=== PATIENT | female | born 1985 | race American Indian/Alaskan Native ===

== ENCOUNTER 2016-11-22 08:39 | Inpatient (IN) | payer MEDICAID ==
[~2016-11-22 08:39] MED LIST: Lactated Ringers 1,000 ML IV ONE
[2016-11-22] MEDS ORDERED: Oxytocin/Normal Saline 30 UNIT/500 ML BAG IV SCH (08:50)
[2016-11-22] MEDS ORDERED: fentaNYL 100 MCG/2 ML SDV ONE (08:58)
--- NOTE | 2016-11-22 09:02 | EDM.PDOC ---
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 Dr. Santa and Dr. Hudson paged upon report. Pt arrived with c/o strong contractions and need to push. Had Hx of prior . Pt unable to provide any further Hx at the time. 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 Below) Other OB/BYN History: hx preeclampsia with thrombocytopenia Psychiatric History: Reports: Other (See Below) Other Psychiatric History: hx opiate use - Past Surgical History Female Surgical History: Reports: Section Social & Family History - Family History Family Medical History: Noncontributory - Tobacco Use Smoking Status *Q: Current Every Day Smoker Years of Tobacco use: 10 Packs/Tins Daily: 0.1 - Recreational Drug Use Recreational Drug Use: No - Living Situation & Occupation Living situation: Reports: with Family ED ROS GENERAL - Review of Systems Review Of Systems: Unable To Obtain ED EXAM - Physical Exam Exam: See Below Exam Limited By: Other (Imminent breech delivery) General Appearance: Alert, No Apparent Distress Head: Atraumatic, Normocephalic Respiratory/Chest: No Respiratory Distress Cardiovascular: Regular Rate, Rhythm GI/Abdominal Exam: Other (gravid abd.) (Female) Exam: Other (single leg to mid-thigh presentation, other foot/leg not palpable on exam, mod. vag. bleeding and fluid leak) Neurological: Alert, Oriented Psychiatric: Anxious Course - Orders/Labs/Meds Orders: Medication Orders Acetaminophen (Tylenol) 650 mg PO Q6H PRN PRN Reason: mild pain or fever Benzocaine/Menthol (Dermoplast Pain Relief [place]) 0 gm TOP Q4H PRN PRN Reason: Perineal comfort measures Carboprost Tromethamine (Hemabate Ds) 250 mcg IM ASDIRECTED PRN PRN Reason: Excessive vaginal bleeding Docusate Sodium (Colace) 100 mg PO BID PRN PRN Reason: Constipation Ibuprofen (Motrin) 800 mg PO Q8H PRN PRN Reason: Mild Pain or Fever Misoprostol (Cytotec) 800 mcg RECTAL ONETIME PRN PRN Reason: Hemorrhage Prenat Multivit/[place]/Iron/Folic Ac ( Plus Iron) 1 each PO DAILY [facility] Simethicone (Simethicone) 80 mg PO Q4H PRN PRN Reason: Gas Sodium Chloride (Saline Flush) 10 ml FLUSH ASDIRECTED PRN PRN Reason: Keep Vein Open Meds: Medications Generic Name Dose Route Start Last Admin Trade Name Freq PRN Reason Stop Dose Admin Acetaminophen 650 mg 11/22/16 09:19 Tylenol PO Q6H PRN mild pain or fever Benzocaine/Menthol 0 gm 11/22/16 09:19 Dermoplast Pain Relief [place] TOP Q4H PRN Perineal comfort measures Carboprost Tromethamine 250 mcg 11/22/16 09:19 Hemabate Ds IM ASDIRECTED PRN Excessive vaginal bleeding Docusate Sodium 100 mg 11/22/16 09:19 Colace PO BID PRN Constipation Ibuprofen 800 mg 11/22/16 09:19 Motrin PO Q8H PRN Mild Pain or Fever Misoprostol 800 mcg 11/22/16 09:19 Cytotec RECTAL ONETIME PRN Hemorrhage Prenat Multivit/[place]/Iron/Folic Ac 1 each 11/23/16 09:00 Plus Iron PO DAILY [facility] Simethicone 80 mg 11/22/16 09:19 Simethicone PO Q4H PRN Gas Sodium Chloride 10 ml 11/22/16 09:19 Saline Flush FLUSH ASDIRECTED PRN Keep Vein Open Discontinued Medications Generic Name Dose Route Start Last Admin Trade Name Freq PRN Reason Stop Dose Admin Fentanyl Confirm 11/22/16 08:58 Sublimaze Administered 11/22/16 08:59 Dose 100 mcg .ROUTE .ST-MED ONE - Re-Assessments/Exams Free Text/Narrative Re-Assessment/Exam: 11/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 Santa present by 08:45, breech delivery of single live female at 08:47HRS. Infant required nasal and oral bulb suction, no mec. present in secretions. moved to warmer and bag/mask resp. support. pinked up and had good oxygen sats, spont. resp. effort, and HR in 140's (see RN notes for initial vitals and Dr. Santa's note for APGARS). Care of pt and infant assumed by Drs. Santa and Tristan following delivery and resuscitation. Departure - Departure Time of Disposition: 09:00 (admitted to Dr. Santa) Disposition: Admitted As Inpatient 66 Condition: Good Clinical Impression: Precipitous delivery Breech delivery Qualifiers: Fetus number: single or unspecified fetus Qualified Code(s): O32.1XX0 - Maternal care for breech presentation, not applicable or unspecified - Discharge Information
[2016-11-22] MEDS ORDERED: Misoprostol 400 MCG (4 X 100 MCG TAB) RECTAL PRN (09:19)
[2016-11-22] MEDS ORDERED: Benzocaine/Menthol 20%-0.5% Spray 56 GM Canister TOP PRN (09:19)
[2016-11-22] MEDS ORDERED: Simethicone 80 MG Tab.Chew PO PRN (09:19)
[2016-11-22] MEDS ORDERED: Sodium Chloride 0.9% 10 ML Syringe FLUSH PRN (09:19)
[2016-11-22] MEDS ORDERED: Acetaminophen 325 MG Tab PO PRN (09:19)
[2016-11-22] MEDS ORDERED: Carboprost Tromethamine 250 MCG/1 ML Amp IM PRN (09:19)
[2016-11-22 10:29] LABS: CHLORIDE,CL 106 mmol/L (101-111); SODIUM,NA 137 mmol/L (135-145)
[2016-11-22] MEDS ORDERED: Lactated Ringers 1,000 ML IV SCH (10:30)
[2016-11-22] MEDS ORDERED: Magnesium Sulfate/Water 100 ML IV ONE (10:43)
[2016-11-22] MEDS: Docusate Sodium 100 MG Cap PO PRN ×2 (10:54→19:56)
[2016-11-22] MEDS: Ibuprofen 800 MG Tab PO PRN ×2 (10:54→19:56)
--- NOTE | 2016-11-22 10:54 | PCM.SN ---
- Free Text/Narrative Note: Called to ER Stat for patient with footling breech presentation - for possible emergency . About 2-3 minutes after I arrived (and Dr. Santa Arrived) , pt delivered precipitously. Dr. Santa then requested some light sedation for placenta delivery, which I provided after O2 mask on, monitors on, and pt asked brief medical history including allergies. I started with 100mcg fentanyl i.v. followed by titrating in a total of 50mg propofol, to allow Dr. Santa to more easily deliver the placenta. SPO2 remained 100% entire duration , and SBP was > 140's (see ER flow sheet for exact numbers). Pt tolerated the delivery well.
[2016-11-22] MEDS: Magnesium Sulfate/Water 20 GM in Premix Bag 1 BAG IV SCH ×2 (12:00→22:04)
--- NOTE | 2016-11-22 14:32 | HP ---
CHIEF COMPLAINT: Active labor with foot presenting. HISTORY OF PRESENT ILLNESS: The patient is a 31-year-old, 5, now para 4 - 1-0-5, who was brought in via ambulance after spontaneous rupture of membranes somewhere between 06:00 and 07:00 this morning and feeling some pressure about 1 hour prior to arrival. Ambulance had called ahead of time letting us know that she was in active labor, and there was a limb presenting. The patient was already in the ER when I arrived at the hospital with the left foot dangling from the vagina approximately at the level of the baby's thigh. I quickly assessed her for other major risk factors. She then felt the urge to push, and I was able to feel the other leg in the vagina, delivered it, so that we had a double footling breech with sacrum anterior. With only one or two pushes, she was able to readily deliver the remainder of the infant thereafter. I will put those details below in a separate delivery note. Baby's scores were 1 and 8. Otherwise, remainder of history gathered after delivery. The patient reports she has been taking ibuprofen just about daily because of frequent headaches, lower extremity swelling that has been ongoing for years, and pain in her varicose veins. Also, reports she has had some blurry vision. No chest pain or shortness of breath. No nausea or vomiting. No right upper quadrant pain, but she denies any other specific concerns. She denied any copious amounts of bleeding. Amniotic fluid was reported to be clear. PAST MEDICAL HISTORY: No care. She has had some piercings of her eyes and nose. Chickenpox as a child. Menarche at age 12 or 13 with 6 to 7 days of average flow with menses every 30 days. She has had a prior blood transfusion. She is a light smoker. 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 OBSTETRICAL HISTORY: 1. No labs this . Records show she is blood type O positive. 2. She delivered on 11/08/2015 via primary low transverse section, a baby who was breech but ultimately delivered transverse back up through a hockey-stick shaped incision and was advised to have her next C- section at 36 weeks' gestation. Ultimately, that baby did well. Mother had an intrapartum hemorrhage and did receive a blood transfusion after that delivery. 3. On 09/23/2010, 36 weeks' gestation female vaginally and adopted this baby out. Weight 2685 g and 2.5 hours of stage I and 9 minutes of stage II. Baby's scores were 9 and 9. Mother reports she was not aware of the . She was also diagnosed with preeclampsia. Urine drug screen at that time was positive for opiates. Remarkable for precipitous delivery. 4. On 08/03/2009, delivered a female weighing 2567 g. Only 2 to 3 hours of labor, pushed for 9 minutes. scores were 9 and 9. No care. Did not know she was at that time either. Had some thrombocytopenia. 5. Delivered in 2007, a 41 weeks and 3 days' gestation female vaginally. Weighing 3725 g; 14.5 hours of labor; pushed for 1 minute. scores of 9 and 9. The patient had been seen in the clinic previously but left without doing any blood work or urinalysis, and they were unable to reach her for any further care. FAMILY HISTORY: Mother with diabetes. Father is unknown. Brother and sister with diabetes. Both maternal grandparents with diabetes. Paternal grandparents are not known to her. No other significant family history reported. SOCIAL HISTORY: She is single and lives with her significant other, Jeb. They have custody of three of their four children and kept custody of those three. The fourth one she did adopt out. She is no longer working at this time. She has been using tobacco. She denied any use of drugs or alcohol during this , even after being informed a drug test would be done. MEDICATIONS: Ibuprofen on at least a daily basis. ALLERGIES: No known drug allergies. REVIEW OF SYSTEMS: Pertinent positives and negatives under the HPI as listed above. No skin rashes. No new numbness or tingling. Denies any symptoms of dysuria. No diarrhea or constipation. No recent upper respiratory infections. OBJECTIVE: Vital Signs: T 97.9, P 76, BP 182/91, RR 16, Sat 92% HEENT: Grossly unremarkable. Her head is normocephalic and atraumatic. Ears, nose, and mouth were unremarkable. Heart: Regular without obvious murmur. Lungs: Clear bilaterally. Abdomen: Now . Fundus is firm and below the umbilicus. Pelvic: There is no difference in tenderness along the site of the uterine incision area. She reports the pain and cramping are similar as they have been after prior vaginal deliveries. Labia and vagina were inspected, and she does not have any lacerations present. Extremities: Edema of 1+ bilaterally. Varicose veins noted. Neurologic: No focal deficits. Reflexes are 1+ and equal. No clonus. Skin: Intact with no obvious signs of infection. LABORATORY DATA: White blood cell count of 11.4, hemoglobin of 9.3, platelets of 152. Urine drug screen is positive for amphetamine and methamphetamine. LDH elevated at 208. Albumin low at 2.9. Protein low at 6.4. Creatinine normal for at 0.5. CO2 low at 17. Urine protein-creatinine ratio 0.63. ASSESSMENT: 1. 5, now para 4-1-0-5. 2. Estimated gestational age based on 's exam is between 36 and 37 weeks' gestation. 3. No care. 4. Preeclampsia. 5. Status post vaginal after . 6. Status post delivery of a double footling breech vaginally. 7. Methamphetamine positive on drug screen; will be sent for confirmation. 8. Protein malnutrition. 9. High-risk social situation. 10.Anemia, likely of , however, also could be chronic with history of prior blood transfusion as well. PLAN: At this time, the patient has been admitted to Labor and Delivery, and she will be kept here on magnesium sulfate for at least 24 hours prior to discharge. Baby is being transferred to the Intensive Care Nursery for further management. I will be turning care over to Dr. Dias for the remainder of her hospital stay. The patient's questions have been answered. [facility] /[id number] PLACIDO
[2016-11-22] MEDS: Labetalol 100 MG Tab PO SCH ×2 (15:04→22:04)
[2016-11-22] MEDS ORDERED: Labetalol 20 MG/4 ML Syringe IVPUSH PRN (15:30)
[2016-11-23] MEDS: Ibuprofen 800 MG Tab PO PRN ×2 (05:51→18:53)
[2016-11-23] MEDS: Magnesium Sulfate/Water 20 GM in Premix Bag 1 BAG IV SCH ×2 (08:04→18:33)
--- NOTE | 2016-11-23 08:13 | DEL ---
DATE: 11/22/2016 PRE-PROCEDURE DIAGNOSES: 1. 5, para 3-1-0-4. 2. No care. 3. Footling breech presenting. 4. History of prior section x1. POSTPROCEDURE DIAGNOSES: 1. 5, para 4-1-0-5. 2. No care. 3. Footling breech presenting. 4. History of prior section x1. 5. Status post successful breech delivery, viable female , scores of 1 and 8, weight 7 pounds 8.5 ounces, 3.415 kg. PROCEDURE IN DETAIL: The patient was brought to the Emergency Department via ambulance with known foot presenting through the vagina. When I came into the room, baby's left leg was protruding from the vagina and starting to turn bluish purple in color. I quickly asked the mother a couple of questions and then she said she had the urge to push. I donned sterile gloves and checked the vagina, and I could feel the 2nd foot and leg in the vaginal vault and I brought that out at the introitus, and now had a double footling breech with sacrum anterior presenting. I was unable to reach the arms and she was pushing quite well, so the remainder of the delivered thereafter. Once I got to the level of the shoulders, I made sure to keep the neck in flexion with delivery of the head. Delivery was uncomplicated. The child had a glazed look in her eyes, and no spontaneous respirations. I called for bag-mask ventilation, and we doubly clamped the umbilical cord, cut it as soon as bulb syringe was handy, mouth and nose were suctioned as well, and baby was taken over to the warmer for further evaluation and resuscitative efforts. I stayed there with her for some positive pressure ventilation and she was responding nicely to that. Dr. Hudson then arrived in the room and was able to assume care of the baby. I returned to the mother and labia and vagina inspected and intact. Placenta was then delivered by gentle cord traction and concomitant uterine massage with fentanyl and propofol for mild sedation and pain control. The placenta was inspected and intact. There was 1 area of old infarction noted, about 2cm in diameter. I palpated the patient's abdomen as she was reporting pain similar to the prior vaginal deliveries. I could not feel any defect of the uterus or of the abdominal wall. There was no extreme tenderness with palpation. The bleeding at delivery was normal for an average vaginal delivery. Uterus in appropriate location and not floating. FINDINGS: Viable female , scores of 1 and 8, weight 7 pounds 2 ounces. DISPOSITION: Mother taken from the Emergency Department back down to a regular room on Labor and Delivery. Baby was taken to the nursery for further cares and anticipated transferred to the Intensive Care Unit as my report at that time was that they are having difficulty getting the baby off the oxygen without desaturating, also there was concern of significant swelling of the 's left leg which was the presenting leg. COMPLICATIONS: Overall, none. Mother has actually done quite well. She does have some elevated blood pressures. We will be watching her and treating for preeclampsia as appropriate. ESTIMATED BLOOD LOSS: 250 mL. [facility] /[id number] PLACIDO
[2016-11-23] MEDS: Labetalol 100 MG Tab PO SCH ×2 (11:12→22:41)
[2016-11-23] MEDS: Docusate Sodium 100 MG Cap PO PRN ×2 (11:12→18:53)
[2016-11-23] MEDS: Prenatal Multivitamin with Calcium/Folic Acid/Iron Tab PO SCH (11:12)
--- NOTE | 2016-11-23 12:57 | PCM.POSTAN ---
POST ANESTHESIA ASSESSMENT - MENTAL STATUS Mental Status: Alert - VITAL SIGNS Pulse Rate: 82 Resp Rate: 16 Blood Pressure: 135/63 Temperature: 36.1 C - RESPIRATORY Respiratory Status: Respiratory Rate WNL - CARDIOVASCULAR CV Status: Pulse Rate WNL - GASTROINTESTINAL GI Status: No Symptoms - POST OP HYDRATION Hydration Status: Adequate & Stable - OBSERVATIONS Free Text/Narrative:: Pt without c/o. No c/o pain or PONV. No post anesthesia complications noted
[2016-11-24] MEDS: Ibuprofen 800 MG Tab PO PRN (06:17)
[2016-11-24] MEDS ORDERED: Ferrous Sulfate 325 MG Tab PO SCH (08:00)
[2016-11-24 09:07] VITALS: BP 125/66
[2016-11-24] MEDS ORDERED: Propofol 200 MG/20 ML SDV IV ONE (10:39)
[2016-11-24] MEDS ORDERED: fentaNYL 100 MCG/2 ML SDV IV ONE (10:39)
[2016-11-24] MEDS: Prenatal Multivitamin with Calcium/Folic Acid/Iron Tab PO SCH (11:28)
[2016-11-24] MEDS: Labetalol 100 MG Tab PO SCH (11:28)
--- NOTE | 2016-11-25 09:53 | PN ---
DATE: 11/23/2016 day #1. SUBJECTIVE: The patient denies any headaches, visual changes, or upper abdominal pain. She denies any shortness of breath, chest pain, or lightheadedness. She has no complaints or requests today. OBJECTIVE: Vital Signs: Heart rate between 66 and 80, last blood pressure this morning was 148/88, did get as high as 160/101 since last night. O2 sats 99%. Appearance: Female, appears her stated age, answering questions appropriately. IV is in and running with mag sulfate. Lungs: Clear to auscultation bilaterally. No increased work of breathing. Heart: S1 and S2. Regular rate and rhythm. Abdomen: Firm uterus at +1 above the umbilicus. Extremities: No peripheral edema. No calf pain. LABORATORY DATA: Reveal a white cell count 7.9, hemoglobin 7.2 compared to predelivery hemoglobin 9.3, platelets of 118,000 compared to predelivery platelets of 152,000 with a note revealing no platelet aggregates seen. Mag level was 5 this morning. ASSESSMENT AND PLAN: 1. day #1, status post spontaneous vaginal delivery of a breech baby with a , with no care, had a precipitous delivery complicated by what appears to be severe preeclampsia, now almost status post 24 hours of magnesium sulfate, so we will stop this. Continue the labetalol as her pressures are still elevated. We will follow urine output closely as well. This has been more than adequate with last night having over 1600 mL out in around 4 hours. 2. Thrombocytopenia, possibly related to the preeclampsia versus other. As other symptoms are resolving, urine output is adequate, no other concerns with labs. We will follow clinically and closely. 3. Anemia of acute blood loss with hemoglobin dropped from 9.3 to 7.2. The patient is currently asymptomatic. Vital signs are stable. Urine output has been adequate. Did discuss with the patient if she has any symptoms to notify us immediately and we may consider blood transfusion if need be. Thepatient understands and agrees the above treatment plan. Tomorrow we will repeat CBC and follow clinically and closely with blood pressures as well. Magnesium will be stopped here shortly. [facility] /[id number]
--- NOTE | 2016-11-25 10:14 | DISCH ---
ADMIT DIAGNOSES: 1. A 37-week G5, P4-0-1-4. 2. No care. 3. Positive urine drug screen for methamphetamines. 4. Anemia of with a hemoglobin of 9.3 upon admission. 5. Prior section x1. 6. Severe preeclampsia. DISCHARGE DIAGNOSES: 1. A 37-week G5, P4-0-1-4. 2. No care. 3. Positive urine drug screen for methamphetamines. 4. Anemia of with a hemoglobin of 9.3 upon admission. 5. Prior section x1. 6. Severe preeclampsia. 7. Precipitous delivery in the ER. 8. Double footling breech delivery. 9. Vaginal after delivery. 10. thrombocytopenia with platelets dropping down the 118,000 up to 131,000 on date of discharge. 11.Anemia of acute blood loss with hemoglobin dropping down to 7.2 without symptoms and deferred blood transfusion. PROCEDURE PERFORMED: Spontaneous vaginal delivery via breech by Dr. Kiet Ohara. HISTORY OF PRESENT ILLNESS: Please see H and P. SUMMARY OF HOSPITAL COURSE: The patient was admitted on the above date with the above diagnoses, presented to the ER, delivered there double footling breech, by Dr. Kiet Ohara. Please see her delivery note for further details. This was complicated by severe preeclampsia with mag sulfate started for 24 hours. She also had thrombocytopenia, day #1 at 118,000 and upon discharge at 131,000 with anemia of acute blood loss with hemoglobin dropping down to 7.2 date prior to discharge with a discharge hemoglobin being 7.4. Please see progress notes for further details. The patient was started on labetalol [address] Kiet Ohara. Blood pressures were essentially controlled shortly thereafter. DISCHARGE EVALUATION: Vital Signs: Temp 98.7, heart rate 66, blood pressure 102/53, and respiratory rate 16. Lungs: Clear to auscultation bilaterally. Heart: S1 and S2. Regular rate and rhythm. Abdomen: Firm uterus at about the umbilicus. No peripheral edema. No calf pain. LABORATORY DATA: Discharge labs reveal a white cell count of 7.2, hemoglobin 7.4, and platelets 131,000. CONDITION ON DISCHARGE COMPARED TO CONDITION ON ADMISSION: Improved. DISCHARGE INSTRUCTIONS: Diet as tolerated. Activity, no lifting more than 20 pounds. No sit-ups, straining, and pelvic rest for next 6 weeks with immediate return to fertility discussed with the patient. Reasons to return or to go to the emergency room were discussed with the patient in detail including, but not limited to, temperature greater than 100.4, foul- smelling discharge, red, hot tender breasts, increased vaginal bleeding, headaches, visual changes, or upper abdominal pain, chest pain, shortness of breath, or lightheadedness or any other concerns. DISCHARGE MEDICATIONS: 1. [id number] Tylenol and ibuprofen. 2. vitamins x6 weeks. 3. Iron sulfate 325 b.i.d. x6 weeks. 4. Colace 100 mg b.i.d. p.r.n. 5. Labetalol 100 mg b.i.d., #14, no refills given with recommendation to follow up in 2 days in the clinic. She will be given information to call the clinic for appointment in [address] Santa or myself. At that time, we will need repeat CBC and blood pressure evaluation to consider weaning off labetalol if possible. Discussed with the patient importance of followup and ramifications of not doing so and did discuss the followup process. The patient understands and agrees with the above treatment plan. [facility] /[id number] [place]ID[place]
== END 2016-11-24 10:40 | disposition home or self-care (01) | DRG 774 ==
LOC: DL.ED 08:39 → UNDOADMIN 08:47 → DL.OB 08:47
PROVIDERS: ADMIT Family Medicine; ATTEND Family Medicine
PROC: 10E0XZZ Delivery of Products of Conception, External Approach (ICD-10-PCS; principal; 2016-11-22)
PROC: 4A1HXFZ Monitoring of Products of Conception, Cardiac Rhythm, External Approach (ICD-10-PCS; 2016-11-22)
DX: O32.8XX0 Maternal care for other malpresentation of fetus, not applicable or unspecified (principal); O72.3 Postpartum coagulation defects; O99.324 Drug use complicating childbirth; D62 Acute posthemorrhagic anemia; O99.12 Other diseases of the blood and blood-forming organs and certain disorders involving the immune mechanism complicating childbirth; Z37.0 Single live birth; O14.14 Severe pre-eclampsia complicating childbirth; Z3A.37 37 weeks gestation of pregnancy; F15.90 Other stimulant use, unspecified, uncomplicated; O34.219 Maternal care for unspecified type scar from previous cesarean delivery; O62.3 Precipitate labor; O99.334 Smoking (tobacco) complicating childbirth
CPT/HCPCS: 01960; 36415; 51702; 80053; 80305; 82570; 82962; 83615; 83735; 84156; 84550; 85025; 85027; 86592; 86762; 86803; 87340; 87389; 99284; 99285; A9270-GY; J2590; J2704; J3010; J3475; J7120

== ENCOUNTER 2018-05-16 10:28 | Emergency (ER) | payer MEDICAID ==
[2018-05-16 12:34] LABS: ANION GAP 14.8; CHLORIDE,CL 100 mmol/L (101-111); SODIUM,NA 134 mmol/L (135-145)
[2018-05-16] MEDS ORDERED: Sodium Chloride 0.9% 10 ML Syringe FLUSH PRN (14:04)
[2018-05-16] MEDS ORDERED: Sodium Chloride 0.9% 1,000 ML IV ONE ×2 (14:04→18:40)
[2018-05-16] MEDS ORDERED: Ondansetron 4 MG/2 ML SDV IV ONE (14:04)
[2018-05-16] MEDS ORDERED: Iopamidol 612 MG/ML 75 ML Bottle IVPUSH ONE (15:01)
--- NOTE | 2018-05-16 15:21 | CT ---
Eliseo: 32-year-old 187 pound female smoker with right-sided pain, leukocytosis (11,100) and vomiting. Scan technique: Volume acquisition of data abdomen and pelvis obtained without oral contrast but during intravenous ministration 75 cc nonionic Isovue (2 cc/s via injector) while patient was lying supine on the Siemens multi slice scanner [facility]. All data archived in the PACS system for storage, reformatting axial/sagittal/coronal planes and study. Interpretation: 1. *Pronounced distention of the gallbladder, RUQ, with dependent noncalcified "sludge" (stones suspect). Cystic duct obstruction probable and suggest ultrasound would help confirm any "stones", preoperatively. 2. Normal hepatic size, anatomic configuration and homogeneous density. No discrete intrahepatic cystic or solid mass lesion and no sign of abnormal dilatation of the intra-extrahepatic biliary ducts. Normal pancreas without sign of major ductal dilatation. 3. Normal stomach, spleen, adrenal glands and kidneys. No renal cortical mass lesion, nephrolithiasis or obstructive uropathy. 4. Normal uterus. Solitary 18 mm diameter cyst left ovary. No other pelvic mass lesion and no sign of abdominal mass lesion, inflammatory "dirty" peritoneal fat, ascites, mechanical bowel obstruction or free intraperitoneal air. 5. Normal appendix identified, right lower quadrant. No calcified appendicoliths, periappendiceal inflammation, or abscess. 6. Normal cardiac silhouette. Lung bases clear. Normal aortoiliac vessels (no aneurysm or dissection). 7. Normal lumbar spine. CONCLUSION: Abnormal gallbladder.
[2018-05-16] MEDS ORDERED: HYDROmorphone 1 MG/ML Syringe IVPUSH ONE (16:25)
[2018-05-16 16:56] VITALS: BP 133/78
[2018-05-16] MEDS ORDERED: fentaNYL 100 MCG/2 ML SDV IVPUSH ONE (18:37)
[2018-05-16] MEDS ORDERED: Piperacillin/Tazobactam 3.375 GM in Sodium Chloride 0.9% 100 ML IV ONE (18:41)
[2018-05-16] MEDS ORDERED: Haloperidol Lactate 5 MG/ML SDV IM ONE (20:24)
[2018-05-16] MEDS ORDERED: Haloperidol Lactate 5 MG/ML SDV IVPUSH ONE (20:31)
--- NOTE | 2018-05-18 17:15 | EDM.PDOC ---
ED HPI GENERAL MEDICAL PROBLEM - General Chief Complaint: Gastrointestinal Problem Stated Complaint: throwing up,FLU [id number] Time Seen by Provider: 05/16/18 14:00 Source of Information: Reports: Patient, RN, RN Notes Reviewed History Limitations: Reports: No Limitations - History of Present Illness INITIAL COMMENTS - FREE TEXT/NARRATIVE: Patient presents to ER with complaint of abdominal pain and vomiting beginning about 0300 hours. She has had nausea, vomiting, abdominal pain and chills. No diarrhea or constipation. Onset: Today Duration: Constant Location: Reports: Abdomen Quality: Reports: Ache Severity: Moderate Improves with: Reports: None Worsens with: Reports: None Associated Symptoms: Reports: No Other Symptoms Right Lower Abdominal Pain Score (Numeric/FACES): 5 - Related Data Allergies Allergy/AdvReac Type Severity Reaction Status Date / Time No Known Allergies Allergy Verified 05/16/18 11:27 Home Meds: Home Meds Ibuprofen [Motrin] 600 mg PO Q6H 11/22/16 [History] Past Medical History HEENT History: Reports: None Cardiovascular History: Reports: None Respiratory History: Reports: None Gastrointestinal History: Reports: None Genitourinary History: Reports: None 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: hx preeclampsia with thrombocytopenia, hx Musculoskeletal History: Reports: None Neurological History: Reports: None Psychiatric History: Reports: Addiction, Other (See Below) Other Psychiatric History: hx opiate use Endocrine/Metabolic History: Reports: None Hematologic History: Reports: Anemia, Blood Transfusion(s) Immunologic History: Reports: None Oncologic (Cancer) History: Reports: None Dermatologic History: Reports: None - Infectious Disease History Infectious Disease History: Reports: None - Past Surgical History Head Surgeries/Procedures: Reports: None Female Surgical History: Reports: Section Social & Family History - Family History Family Medical History: Noncontributory - Tobacco Use Smoking Status *Q: Never Smoker Years of Tobacco use: 7 Packs/Tins Daily: 0.2 Second Hand Smoke Exposure: Yes - Caffeine Use Caffeine Use: Reports: Coffee, Soda - Recreational Drug Use Recreational Drug Use: Yes Drug Use in Last 12 Months: Yes Recreational Drug Type: Reports: Amphetamines (Speed) - Living Situation & Occupation Living situation: Reports: with Family ED ROS GENERAL - Review of Systems Review Of Systems: ROS reveals no pertinent complaints other than HPI. ED EXAM, GI/ABD - Physical Exam Exam: See Below Exam Limited By: No Limitations General Appearance: Alert, WD/WN, No Apparent Distress Eyes: Bilateral: Normal Appearance Ears: Normal External Exam, Normal Canal, Hearing Grossly Normal, Normal TMs Nose: Normal Inspection, Normal Mucosa, No Blood Throat/Mouth: Normal Inspection, Normal Lips, Normal Teeth, Normal Gums, Normal Oropharynx, Normal Voice, No Airway Compromise Head: Atraumatic, Normocephalic Neck: Normal Inspection, Supple, Non-Tender, Full Range of Motion Respiratory/Chest: No Respiratory Distress, Lungs Clear, Normal Breath Sounds, No Accessory Muscle Use, Chest Non-Tender Cardiovascular: Normal Peripheral Pulses, Regular Rate, Rhythm, No Edema, No Gallop, No JVD, No Murmur, No Rub GI/Abdominal Exam: Other (RUQ and RLQ pain.) (Female) Exam: Deferred Rectal (Female) Exam: Deferred Back Exam: Normal Inspection, Full Range of Motion, NT Extremities: Normal Inspection Neurological: Alert, Oriented, CN II-XII Intact, Normal Cognition, Normal Gait, Normal Reflexes, No Motor/Sensory Deficits Psychiatric: Normal Affect, Normal Mood Skin Exam: Warm, Dry, Intact, Normal Color, No Rash Lymphatic: No Adenopathy Course - Vital Signs Last Recorded V/S: Last Vital Signs Temp 99.2 F 05/16/18 16:55 Pulse 61 05/16/18 16:55 Resp 16 05/16/18 16:55 BP 133/78 05/16/18 16:55 Pulse Ox 100 05/16/18 16:55 - Orders/Labs/Meds Labs: Laboratory Tests 05/16/18 05/16/18 05/16/18 Range/Units 12:07 12:07 12:07 WBC (5.0-10.0) 10^3/uL RBC (4.2-5.4) 10^6/uL Hgb (12.0-16.0) g/dL Hct (37.0-47.0) % MCV (80-100) fL MCH (27.0-34.0) pg MCHC (33.0-35.0) g/dL Plt Count (150-450) 10^3/uL Neut % (Auto) (42.2-75.2) % Lymph % (Auto) (20.5-50.1) % Swain % (Auto) (2-8) % Eos % (Auto) (1.0-3.0) % Baso % (Auto) (0.0-1.0) % Sodium (135-145) mmol/L Potassium (3.6-5.0) mmol/L Chloride (101-111) mmol/L Carbon Dioxide (21.0-31.0) mmol/L Anion Gap BUN (7-18) mg/dL Creatinine (0.6-1.3) mg/dL Est Cr Clr Drug Dosing mL/min Estimated GFR (MDRD) BUN/Creatinine Ratio Glucose (74-105) mg/dL Calcium (8.4-10.2) mg/dl Total Bilirubin (0.2-1.0) mg/dL AST (10-42) IU/L ALT (10-60) IU/L Alkaline Phosphatase (42-121) IU/L Total Protein (6.7-8.2) g/dl Albumin (3.2-5.5) g/dl Globulin Albumin/Globulin Ratio Urine Color Yellow (YELLOW) Urine Appearance Clear (CLEAR) Urine pH 6.0 (5.0-9.0) Ur Specific [place] >= 1.030 (1.005-1.030) Urine Protein 100 H (NEGATIVE) Urine Glucose (UA) Negative (NEGATIVE) Urine Ketones Negative (NEGATIVE) Urine Occult Blood Negative (NEGATIVE) Urine Nitrite Negative (NEGATIVE) Urine Bilirubin Negative (NEGATIVE) Urine Urobilinogen 0.2 (0.2-1.0) mg/dL Ur Leukocyte Esterase Negative (NEGATIVE) Urine RBC 0-5 /HPF Urine WBC 0-5 (0-5/HPF) /HPF Ur Epithelial Cells Moderate H /HPF Amorphous Sediment Moderate H (0/HPF) /HPF Urine Bacteria Few (0-FEW/HPF) /HPF Urine Mucus Many H /LPF Urine HCG, Qual Negative Urine Opiates Screen Negative (NEGATIVE) Ur Oxycodone Screen Negative (NEGATIVE) Urine Methadone Screen Negative (NEGATIVE) Ur Barbiturates Screen Negative (NEGATIVE) U Tricyclic Antidepress Negative (NEGATIVE) Ur Phencyclidine Scrn Negative (NEGATIVE) Ur Amphetamine Screen Negative (NEGATIVE) U Methamphetamines Scrn Negative (NEGATIVE) Urine MDMA Screen Negative (NEGATIVE) U Benzodiazepines Scrn Negative (NEGATIVE) Urine Cocaine Screen Negative (NEGATIVE) U Marijuana (THC) Screen Negative (NEGATIVE) 05/16/18 05/16/18 Range/Units 12:08 12:08 WBC 11.1 H (5.0-10.0) 10^3/uL RBC 5.04 (4.2-5.4) 10^6/uL Hgb 13.3 D (12.0-16.0) g/dL Hct 41.1 (37.0-47.0) % MCV 81.5 D (80-100) fL MCH 26.4 L (27.0-34.0) pg MCHC 32.4 L (33.0-35.0) g/dL Plt Count 220 D (150-450) 10^3/uL Neut % (Auto) 85.0 H (42.2-75.2) % Lymph % (Auto) 10.4 L (20.5-50.1) % Swain % (Auto) 4.0 (2-8) % Eos % (Auto) 0.4 L (1.0-3.0) % Baso % (Auto) 0.2 (0.0-1.0) % Sodium 134 L (135-145) mmol/L Potassium 3.8 (3.6-5.0) mmol/L Chloride 100 L (101-111) mmol/L Carbon Dioxide 23.0 (21.0-31.0) mmol/L Anion Gap 14.8 BUN 11 (7-18) mg/dL Creatinine 0.6 (0.6-1.3) mg/dL Est Cr Clr Drug Dosing 122.25 mL/min Estimated GFR (MDRD) > 60 BUN/Creatinine Ratio 18.33 Glucose 115 H (74-105) mg/dL Calcium 8.9 (8.4-10.2) mg/dl Total Bilirubin 0.8 (0.2-1.0) mg/dL AST 35 (10-42) IU/L ALT 37 (10-60) IU/L Alkaline Phosphatase 86 (42-121) IU/L Total Protein 8.3 H (6.7-8.2) g/dl Albumin 4.4 (3.2-5.5) g/dl Globulin 3.9 Albumin/Globulin Ratio 1.13 Urine Color (YELLOW) Urine Appearance (CLEAR) Urine pH (5.0-9.0) Ur Specific [place] (1.005-1.030) Urine Protein (NEGATIVE) Urine Glucose (UA) (NEGATIVE) Urine Ketones (NEGATIVE) Urine Occult Blood (NEGATIVE) Urine Nitrite (NEGATIVE) Urine Bilirubin (NEGATIVE) Urine Urobilinogen (0.2-1.0) mg/dL Ur Leukocyte Esterase (NEGATIVE) Urine RBC /HPF Urine WBC (0-5/HPF) /HPF Ur Epithelial Cells /HPF Amorphous Sediment (0/HPF) /HPF Urine Bacteria (0-FEW/HPF) /HPF Urine Mucus /LPF Urine HCG, Qual Urine Opiates Screen (NEGATIVE) Ur Oxycodone Screen (NEGATIVE) Urine Methadone Screen (NEGATIVE) Ur Barbiturates Screen (NEGATIVE) U Tricyclic Antidepress (NEGATIVE) Ur Phencyclidine Scrn (NEGATIVE) Ur Amphetamine Screen (NEGATIVE) U Methamphetamines Scrn (NEGATIVE) Urine MDMA Screen (NEGATIVE) U Benzodiazepines Scrn (NEGATIVE) Urine Cocaine Screen (NEGATIVE) U Marijuana (THC) Screen (NEGATIVE) Meds: Medications Discontinued Medications Generic Name Dose Route Start Last Admin Trade Name Freq PRN Reason Stop Dose Admin Fentanyl 50 mcg 05/16/18 18:37 05/16/18 19:11 Sublimaze IVPUSH 05/16/18 18:38 50 mcg ONETIME ONE Administration Haloperidol Lactate 2 mg 05/16/18 20:24 05/16/18 20:38 Haldol IM 05/16/18 20:25 Not Given ONETIME ONE Haloperidol Lactate 2 mg 05/16/18 20:31 05/16/18 20:38 Haldol IVPUSH 05/16/18 20:32 2 mg ONETIME ONE Administration Hydromorphone HCl 1 mg 05/16/18 16:25 05/16/18 16:29 Dilaudid IVPUSH 05/16/18 16:26 1 mg ONETIME ONE Administration Sodium Chloride 1,000 mls @ 999 mls/hr 05/16/18 14:04 05/16/18 14:24 Normal Saline IV 05/16/18 15:04 999 mls/hr .BOLUS ONE Administration Piperacillin Sod/Tazobactam 100 mls @ 200 mls/hr 05/16/18 18:41 05/16/18 19: 10 Sod 3.375 gm/ Sodium Chloride IV 05/16/18 19:10 200 mls/hr ONETIME ONE Administration Sodium Chloride 1,000 mls @ 100 mls/hr 05/16/18 18:40 05/16/18 19:35 Normal Saline IV 05/17/18 04:39 100 mls/hr SEECOMMENT ONE Administration Iopamidol 75 ml 05/16/18 15:01 05/16/18 15:02 Isovue-300 (61%) IVPUSH 05/16/18 15:02 75 ml ONETIME ONE Administration Ondansetron HCl 4 mg 05/16/18 14:04 05/16/18 14:27 Zofran IV 05/16/18 14:05 4 mg ONETIME ONE Administration Sodium Chloride 10 ml 05/16/18 14:04 05/16/18 14:15 Saline Flush FLUSH 10 ml ASDIRECTED PRN Administration Keep Vein Open - Radiology Interpretation Free Text/Narrative:: CT Abdomen/Pelvis w contrast: Pronounced distention of the gallbladder, RUQ, with dependent noncalcified sludge (stones suspected). Cystic duct obstruction probable and suggest ultrasound would help confirm any "stones" preoperatively. Abnormal gallbladder See rad report Departure - Departure Time of Disposition: 21:09 Disposition: DC/Tfer to Acute Hospital 02 Condition: Fair Clinical Impression: Cholelithiasis Qualifiers: Cholelithiasis location: other site Biliary obstruction: with biliary obstruction Qualified Code(s): K80.81 - Other cholelithiasis with obstruction - Discharge Information *PRESCRIPTION DRUG MONITORING PROGRAM REVIEWED*: No *COPY OF PRESCRIPTION DRUG MONITORING REPORT IN PATIENT ARRON: No Referrals: Sindy Roldan MD [Primary Care Provider] - Forms: ED Department Discharge, Interfacility Transfer [facility]
== END 2018-05-16 21:04 ==
LOC: DL.ED 10:28
DX: K80.81 Other cholelithiasis with obstruction (principal); Z77.22 Contact with and (suspected) exposure to environmental tobacco smoke (acute) (chronic)
CPT/HCPCS: 36415; 74177; 80053; 80305; 81001; 81025; 85025; 96365; 96366; 96367; 96375; 99285; J1170; J1630; J2405; J2543; J3010; J7030; J7050; Q9967

== ENCOUNTER 2020-03-16 13:48 | Emergency (ER) | payer SELFPAY ==
[2020-03-16] MEDS: Naloxone 2 MG/2 ML Syringe ONE (13:46)
[2020-03-16] MEDS ORDERED: Ondansetron 4 MG in Sodium Chloride 0.9% 50 ML IV ONE (13:57)
[2020-03-16] MEDS ORDERED: Ondansetron 4 MG/2 ML SDV IVPUSH ONE (14:00)
[2020-03-16] MEDS: Ondansetron 4 MG/2 ML SDV ONE (14:00)
[2020-03-16 14:16] LABS: ANION GAP 13.6 mEq/L (7-13); CHLORIDE,CL 105 mmol/L (98-107); SODIUM,NA 139 mmol/L (136-145)
--- NOTE | 2020-03-16 15:01 | EDM.PDOCBH ---
ED HPI GENERAL MEDICAL PROBLEM - General Chief Complaint: Drug or Alcohol Abuse Stated Complaint: RAPID RESPONSE Time Seen by Provider: 03/16/20 13:50 Source of Information: Reports: RN, RN Notes Reviewed - History of Present Illness INITIAL COMMENTS - FREE TEXT/NARRATIVE: 34 year-old female who presents with her significant for being unresponsive after smoking fentanyl. Her significant other dropped her off at the ER door. 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: hx preeclampsia with thrombocytopenia, hx Musculoskeletal History: Reports: None Neurological History: Reports: None Psychiatric History: Reports: Addiction, Other (See Below) Other Psychiatric History: hx opiate use Endocrine/Metabolic History: Reports: None Hematologic History: Reports: Anemia, Blood Transfusion(s) Immunologic History: Reports: None Oncologic (Cancer) History: Reports: None Dermatologic History: Reports: None - Infectious Disease History Infectious Disease History: Reports: None - Past Surgical History Head Surgeries/Procedures: Reports: None Female Surgical History: Reports: Section Social & Family History - Family History Family Medical History: No Pertinent Family History - Tobacco Use Tobacco Use Status *Q: Current Every Day Tobacco User Years of Tobacco use: 12 Packs/Tins Daily: 0.5 Second Hand Smoke Exposure: Yes - Caffeine Use Caffeine Use: Reports: Coffee, Soda - Recreational Drug Use Recreational Drug Use: Yes Drug Use in Last 12 Months: Yes Recreational Drug Type: Reports: Fentanyl, Oxycodone - Living Situation & Occupation Living situation: Reports: with Family ED ROS GENERAL - Review of Systems Review Of Systems: Unable To Obtain Reason Not Obtained: Unresponsive ED EXAM, BEHAVIORAL HEALTH - Physical Exam Exam: See Below Exam Limited By: Other (Exam performed after Narcan administration.) General Appearance: Alert, Anxious Eye Exam: Bilateral Eye: Normal Inspection, PERRL Ears: Normal External Exam, Normal Canal, Hearing Grossly Normal Nose: Normal Inspection, Normal Mucosa, No Blood Throat/Mouth: Normal Inspection, Normal Lips, Normal Teeth, Normal Gums, Normal Oropharynx, Normal Voice, No Airway Compromise Head: Atraumatic, Normocephalic Neck: Normal Inspection, Supple, Non-Tender, Full Range of Motion Respiratory/Chest: No Respiratory Distress, Lungs Clear, Normal Breath Sounds, No Accessory Muscle Use, Chest Non-Tender Cardiovascular: Normal Peripheral Pulses, Regular Rate, Rhythm, No Edema, No Gallop, No JVD, No Murmur, No Rub GI/Abdominal: Normal Bowel Sounds, Soft, Non-Tender, No Organomegaly, No Distention, No Abnormal Bruit, No Mass (Female) Exam: Deferred Rectal (Female) Exam: Deferred Back Exam: Normal Inspection Extremities: Normal Inspection, Normal Range of Motion, Non-Tender, Normal Capillary Refill, No Pedal Edema Neurological: Alert, Normal Mood/Affect, CN II-XII Intact, Normal Cognition Psychiatric: Alert, Normal Affect, Normal Cognition, Normal Mood Skin Exam: Warm, Dry, Intact, Normal color COURSE, BEHAVIORAL HEALTH COMP - Course Orders, Labs, Meds: Laboratory Tests 03/16/20 03/16/20 03/16/20 Range/Units 13:47 13:47 13:49 WBC 12.7 H (5.0-10.0) 10^3/uL RBC 4.55 (4.2-5.4) 10^6/uL Hgb 12.8 (12.0-16.0) g/dL Hct 39.8 (37.0-47.0) % MCV 87.5 D (80-100) fL MCH 28.1 (27.0-34.0) pg MCHC 32.2 L (33.0-35.0) g/dL Plt Count 178 (150-450) 10^3/uL Neut % (Auto) 38.4 L (42.2-75.2) % Lymph % (Auto) 49.4 (20.5-50.1) % [place] % (Auto) 6.3 (2-8) % Eos % (Auto) 5.5 H (1.0-3.0) % Baso % (Auto) 0.4 (0.0-1.0) % Sodium 139 (136-145) mmol/L Potassium 3.6 (3.5-5.1) mmol/L Chloride 105 (98-107) mmol/L Carbon Dioxide 24 (21-32) mmol/L Anion Gap 13.6 H (7-13) mEq/L BUN 13 (7-18) mg/dL Creatinine 0.93 (0.55-1.02) mg/dL Est Cr Clr Drug Dosing TNP Estimated GFR (MDRD) > 60 BUN/Creatinine Ratio 14.0 (No establ ref range) Glucose 210 H (74-99) mg/dL POC Glucose 191 H (70-105) mg/dl Calcium 8.1 L (8.5-10.1) mg/dL Total Bilirubin 0.3 (0.2-1.0) mg/dL AST 18 (15-37) U/L ALT 23 (14-59) U/L Alkaline Phosphatase 77 (46-116) U/L Total Protein 7.0 (6.4-8.2) g/dL Albumin 3.5 (3.4-5.0) g/dL Globulin 3.5 Albumin/Globulin Ratio 1.0 Urine Opiates Screen (NEGATIVE) Ur Oxycodone Screen (NEGATIVE) Urine Methadone Screen (NEGATIVE) Ur Barbiturates Screen (NEGATIVE) U Tricyclic Antidepress (NEGATIVE) Ur Phencyclidine Scrn (NEGATIVE) Ur Amphetamine Screen (NEGATIVE) U Methamphetamines Scrn (NEGATIVE) Urine MDMA Screen (NEGATIVE) U Benzodiazepines Scrn (NEGATIVE) Urine Cocaine Screen (NEGATIVE) U Marijuana (THC) Screen (NEGATIVE) Ethyl Alcohol < 3 (0) mg/dL 12/25/20 Range/Units 14:15 WBC (5.0-10.0) 10^3/uL RBC (4.2-5.4) 10^6/uL Hgb (12.0-16.0) g/dL Hct (37.0-47.0) % MCV (80-100) fL MCH (27.0-34.0) pg MCHC (33.0-35.0) g/dL Plt Count (150-450) 10^3/uL Neut % (Auto) (42.2-75.2) % Lymph % (Auto) (20.5-50.1) % [place] % (Auto) (2-8) % Eos % (Auto) (1.0-3.0) % Baso % (Auto) (0.0-1.0) % Sodium (136-145) mmol/L Potassium (3.5-5.1) mmol/L Chloride (98-107) mmol/L Carbon Dioxide (21-32) mmol/L Anion Gap (7-13) mEq/L BUN (7-18) mg/dL Creatinine (0.55-1.02) mg/dL Est Cr Clr Drug Dosing Estimated GFR (MDRD) BUN/Creatinine Ratio (No establ ref range) Glucose (74-99) mg/dL POC Glucose (70-105) mg/dl Calcium (8.5-10.1) mg/dL Total Bilirubin (0.2-1.0) mg/dL AST (15-37) U/L ALT (14-59) U/L Alkaline Phosphatase (46-116) U/L Total Protein (6.4-8.2) g/dL Albumin (3.4-5.0) g/dL Globulin Albumin/Globulin Ratio Urine Opiates Screen Negative (NEGATIVE) Ur Oxycodone Screen Negative (NEGATIVE) Urine Methadone Screen Negative (NEGATIVE) Ur Barbiturates Screen Negative (NEGATIVE) U Tricyclic Antidepress Negative (NEGATIVE) Ur Phencyclidine Scrn Negative (NEGATIVE) Ur Amphetamine Screen Negative (NEGATIVE) U Methamphetamines Scrn Negative (NEGATIVE) Urine MDMA Screen Negative (NEGATIVE) U Benzodiazepines Scrn Negative (NEGATIVE) Urine Cocaine Screen Negative (NEGATIVE) U Marijuana (THC) Screen Negative (NEGATIVE) Ethyl Alcohol (0) mg/dL Medications Discontinued Medications Generic Name Dose Route Start Last Admin Trade Name Emilia PRN Reason Stop Dose Admin Ondansetron HCl 4 mg/ Sodium 52 mls @ 200 mls/hr 03/16/20 13:57 03/16/20 14:34 Chloride IV 03/16/20 14:13 Not Given ONETIME ONE Naloxone HCl Confirm 03/16/20 13:53 03/16/20 13:46 Narcan Administered 03/16/20 13:54 2 mg Dose Administration 2 mg .ROUTE .STK-MED ONE Ondansetron HCl Confirm 03/16/20 13:57 03/16/20 14:00 Zofran Administered 03/16/20 13:58 4 mg Dose Administration 4 mg .ROUTE .STK-MED ONE Ondansetron HCl 4 mg 03/16/20 14:00 03/16/20 14:01 Zofran IVPUSH 03/16/20 14:01 Not Given ONETIME ONE Re-Assessment/Re-Exam: Patient was administered an amp of Narcan IM. She responded after a few minutes and reported she smoked fentanyl to get "high". NS !L administered. She states she has not used drugs for the past 6 months. Exam findings and lab results reviewed with patient. Encouraged her to seek treatment. She verbalized understanding. Departure - Departure Time of Disposition: 15:27 Disposition: Home, Self-Care 01 Condition: Good Clinical Impression: Accidental drug overdose Qualifiers: Encounter type: initial encounter Qualified Code(s): T50.901A - Poisoning by u nspecified drugs, medicaments and biological substances, accidental (unintentional), initial encounter Accidental fentanyl overdose Qualifiers: Encounter type: initial encounter Qualified Code(s): T40.411A - Poisoning by fentanyl or fentanyl analogs, accidental (unintentional), initial encounter - Discharge Information Instructions: Accidental Drug Poisoning, Adult Forms: ED Department Discharge Additional Instructions: Encouraged her to seek treatment.
[2020-03-17] MEDS ORDERED: Naloxone 2 MG/2 ML Syringe IVPUSH ONE (13:46)
[2020-03-17] MEDS ORDERED: Ondansetron 4 MG/2 ML SDV IVPUSH ONE (14:00)
[2020-03-20] MEDS: Ondansetron 4 MG/2 ML SDV ONE (15:36)
[2020-03-20] MEDS: Naloxone 2 MG/2 ML Syringe ONE (15:36)
== END 2020-03-16 15:40 | disposition home or self-care (01) ==
LOC: DL.ED 13:48
DX: T40.411A Poisoning by fentanyl or fentanyl analogs, accidental (unintentional), initial encounter (principal); F17.210 Nicotine dependence, cigarettes, uncomplicated
CPT/HCPCS: 36415; 80053; 80305; 80307; 82962; 85025; 96374; 99283; 99284; J2310; J2405; 96375

== ENCOUNTER 2022-01-06 02:35 | Emergency (ER) | payer MEDICAID ==
[2022-01-06] MEDS ORDERED: Silver Sulfadiazine 1% Crm 50 GM Tube TOP ONE (15:10)
[2022-01-06] MEDS ORDERED: Lidocaine 1% 50 MG/5 ML Syringe IVPUSH ONE (15:10)
[2022-01-06] MEDS ORDERED: cefTRIAXone 2 GM Vial IV ONE (15:10)
== END 2022-01-06 15:33 | disposition home or self-care (01) ==
LOC: DL.ED 02:35
DX: T22.211A Burn of second degree of right forearm, initial encounter (principal); X15.0XXA Contact with hot stove (kitchen), initial encounter
CPT/HCPCS: 16020; 96372; 99283